=== PATIENT | female | born 1965 | race Caucasian/White ===

== ENCOUNTER 2016-06-12 10:55 | Outpatient (CLI) | payer OTHER ==
[2016-06-12 11:49] VITALS: BP 119/56
[2016-06-12] MEDS ORDERED: IRON SUCROSE COMPLEX 200 MG in NORMAL SALINE 100 ML IV ONE (13:00)
== END 2016-06-12 12:33 | disposition home or self-care (01) ==
LOC: II 10:55 → 5TH 11:00 → II 12:33
PROVIDERS: ATTEND Internal Medicine
PROC: 3E033GC Introduction of Other Therapeutic Substance into Peripheral Vein, Percutaneous Approach (ICD-10-PCS; principal; 2016-06-12)
DX: D50.0 Iron deficiency anemia secondary to blood loss (chronic) (principal); K90.9 Intestinal malabsorption, unspecified
CPT/HCPCS: 96365; J1756

== ENCOUNTER 2016-06-19 10:31 | Outpatient (CLI) | payer OTHER ==
[~2016-06-19 10:31] MED LIST: IRON SUCROSE COMPLEX 200 MG in NORMAL SALINE 100 ML IV PRN
[2016-06-19 11:25] VITALS: BP 141/90
== END 2016-06-19 11:48 | disposition home or self-care (01) ==
LOC: II 10:31 → 5TH 10:33 → II 11:48
PROVIDERS: ATTEND Internal Medicine
PROC: 3E033GC Introduction of Other Therapeutic Substance into Peripheral Vein, Percutaneous Approach (ICD-10-PCS; principal; 2016-06-19)
DX: D50.0 Iron deficiency anemia secondary to blood loss (chronic) (principal); K90.9 Intestinal malabsorption, unspecified
CPT/HCPCS: 96374; J1756; 96367

== ENCOUNTER 2016-06-26 10:18 | Outpatient (CLI) | payer OTHER ==
[2016-06-26 10:50] VITALS: BP 114/71
== END 2016-06-26 11:26 | disposition home or self-care (01) ==
LOC: II 10:18 → 5TH 10:20 → II 11:26
PROVIDERS: ATTEND Internal Medicine
PROC: 3E033GC Introduction of Other Therapeutic Substance into Peripheral Vein, Percutaneous Approach (ICD-10-PCS; principal; 2016-06-26)
DX: D50.0 Iron deficiency anemia secondary to blood loss (chronic) (principal); K90.9 Intestinal malabsorption, unspecified
CPT/HCPCS: 96374; J1756; 96367

== ENCOUNTER → 2016-08-27 | Outpatient (CLI) | payer OTHER ==
--- NOTE | 2016-08-27 11:59 | RADIOLOGY REPORT (SQ) ---
EXAM DESCRIPTION: MRI CERVICAL SPINE WITHOUT COMPLETED DATE/TIME: 08/27/2016 9:05 am REASON FOR STUDY: CERVICAL RADICULOPATHY (M54.12) M54.16 RADICULOPATHY, LUMBAR REGION M54.12 RADIC ULOPATHY, CERVICAL REGION COMPARISON: None. TECHNIQUE: Sagittal and Axial imaging includes T1, T2, STIR and gradient echo sequences. LIMITATIONS: None. FINDINGS: ALIGNMENT: Normal. VERTEBRAE: Intact. BONE MARROW: Normal. No marrow replacement or reactive changes. DISCS: A disc implant is present at C4-5 and C5-6. HARDWARE: Anterior plate and disc implant at C4-C6 CORD AND BASE OF BRAIN: No abnormal signal is seen in the cord. SOFT TISSUES: No soft tissue masses. C1-C2: No significant spinal stenosis. C2-C3: There is a small central disc/ osteophyte complex that narrows the CSF space anteriorly but do es not deform the spinal cord. C3-C4: There is broad-based disc/osteophyte complex and there are uncovertebral osteophytes. There i s thickening of the ligamentum flavum. These findings result in deformity of the cord with narrowing in the AP diameter and a with significant foraminal stenoses as well. C4-C5: No significant spinal stenosis or exit foraminal stenosis. C5-C6: No significant spinal stenosis or exit foraminal stenosis. C6-C7: There are uncovertebral osteophytes causing mild left foraminal stenosis. C7-T1: No significant spinal stenosis or exit foraminal stenosis. UPPER THORACIC: Incompletely imaged. No significant spinal stenosis or exit foraminal stenosis. OTHER: No other significant finding. IMPRESSION: 1. Prior ACDF. 2. There is significant central canal and foraminal stenosis at C3-4 secondary to broad-based disc/o steophyte complex and uncovertebral osteophytes together with thickening of the ligamentum flavum. 3. There is mild left foraminal stenosis secondary to presence of uncovertebral osteophytes at C6-7. TECHNICAL DOCUMENTATION: JOB ID: [id number]- All Rights Reserved
--- NOTE | 2016-08-27 12:35 | RADIOLOGY REPORT (SQ) ---
EXAM DESCRIPTION: MRI LUMBAR SPINE WITHOUT COMPLETED DATE/TIME: 08/27/2016 9:05 am REASON FOR STUDY: LUMBAR RADICULOPATHY (M54.16) M54.16 RADICULOPATHY, LUMBAR REGION M54.12 RADICUL OPATHY, CERVICAL REGION COMPARISON: None. TECHNIQUE: Sagittal and Axial imaging includes T1, T2, STIR and gradient echo sequences. Coronal T2/ HASTE imaging. LIMITATIONS: None. FINDINGS: VISUALIZED UPPER ABDOMEN: Limited evaluation. No acute or suspicious findings suggested. SEGMENTATION: No transitional anatomy. The lowest well-developed disc space is labeled L5-S1. ALIGNMENT: Anatomic. VERTEBRAE: Intact. BONE MARROW: Modic changes are seen in the inferior endplate of L3 and the superior endplate of L4. DISC SIGNAL: Normal. No significant abnormal signal or loss of height. POSTERIOR ELEMENTS: Generally intact. No pars defect evident. HARDWARE: There are posterior rods with screws through the pedicles at L3 and L4 with a disc implant at L3-4. CORD AND CONUS: The conus lies at L1. Included spinal cord is normal. SOFT TISSUES: No aortic aneurysm seen. No bulky retroperitoneal adenopathy or mass. No paraspinal mas s or fluid. L1-L2: No significant spinal stenosis or exit foraminal stenosis. L2-L3: No significant spinal stenosis or exit foraminal stenosis. L3-L4: Surgical changes. No spinal stenosis. No exit foraminal stenosis. L4-L5: There is circumferential disc bulge and there is an annular tear. These findings displace the traversing nerve roots dorsally. There is no foraminal stenosis. There is prominence of the ligame ntum flavum. L5-S1: There is a broad-based disc bulge with a small annular tear. The traversing nerve root on the left is minimally displaced dorsally. There is no foraminal stenosis. LOWER THORACIC: Incompletely imaged. No stenosis seen. SACRUM: Visualized upper sacrum intact. OTHER: No other significant findings. IMPRESSION: 1. Surgical changes at L3-4. 2. There is circumferential disc bulge at L4-5 with an annular tear. There is moderate central ilene l stenosis. 3. There is a broad-based disc bulge with a small annular tear at L5-S1. There is mild central ilene l stenosis. TECHNICAL DOCUMENTATION: JOB ID: [id number]- All Rights Reserved
== END ==
LOC: RAD 07:36
PROVIDERS: ATTEND Internal Medicine
DX: M54.16 Radiculopathy, lumbar region (principal); M54.12 Radiculopathy, cervical region
CPT/HCPCS: 72141; 72148

== ENCOUNTER → 2016-09-07 | Outpatient (CLI) | payer OTHER ==
--- NOTE | 2016-09-07 12:00 | RADIOLOGY REPORT (SQ) ---
EXAM DESCRIPTION: CT CERVICAL SPINE WITHOUT COMPLETED DATE/TIME: 09/07/2016 11:12 am REASON FOR STUDY: NECK AND LUMBAR PAIN M54.16 RADICULOPATHY, LUMBAR REGION M54.12 RADICULOPATHY, C ERVICAL REGION COMPARISON: MRI cervical spine 08/27/2016, 09/23/2015 TECHNIQUE: Axial images acquired through the cervical spine without intravenous contrast. Images re viewed with lung, soft tissue and bone windows. Reconstructed coronal and sagittal MPR images review ed. Images stored on PACS. All CT scanners at this facility use dose modulation, iterative reconstruction, and/or weight based d osing when appropriate to reduce radiation dose to as low as reasonably achievable (ALARA). [facility]: Dose Right [facility]: CareDose [facility]: Dose Right [facility]: Teradose 4D [facility]: [employer] RADIATION DOSE: 15.05 mGy. LIMITATIONS: None. FINDINGS: ALIGNMENT: Straightening of cervical lordosis MINERALIZATION: Normal. VERTEBRAL BODIES: No fractures or dislocation. DISCS: Craniocervical junction, C1-2 and C2-3 are unremarkable. At C3-4, moderate central canal stenosis results from broad diffuse disc bulge and bony spurring and ligamentum flavum thickening. There is moderate bilateral foraminal narrowing from facet and uncover tebral hypertrophy. At C4-5, patient is post discectomy and fusion with an anterior fixation plate and anchoring screws i nto the C4 and C5 vertebral bodies. No significant posterior disc bulge or bony spurring. Minimal b ilateral foraminal narrowing from facet and uncovertebral hypertrophy. At C5-6, patient is post discectomy and fusion with bone graft and anterior fixation plate with ancho ring screws. No significant central stenosis. Minimal posterior bony spurring. Mild bilateral fora suzy narrowing from facet and uncovertebral hypertrophy. At C6-7, patient is post discectomy and fusion with bone graft material, and anterior fixation plate with anchoring screws in the C6 and C7 vertebral bodies. There is minimal posterior bony spurring wi th borderline central canal narrowing. Moderate right, mild left foraminal narrowing. At C7-T1, there is disc space loss of height with mild diffuse posterior disc bulge and bony spurring . No central stenosis. Moderate to high-grade bilateral foraminal narrowing. FACETS, LATERAL MASSES, POSTERIOR ELEMENTS: No fractures. HARDWARE: As above VISUALIZED RIBS: No fractures. LUNG APICES AND SOFT TISSUES: No significant or acute findings. OTHER: No other significant finding. IMPRESSION: Moderate central canal stenosis at C3-4, above the level of multilevel fusion. TECHNICAL DOCUMENTATION: JOB ID: [id number] Quality ID # [id number]: Final reports with documentation of one or more dose reduction techniques (e.g., Au tomated exposure control, adjustment of the mA and/or kV according to patient size, use of iterative reconstruction technique) 2010 [employer]- All Rights Reserved
--- NOTE | 2016-09-07 12:17 | RADIOLOGY REPORT (SQ) ---
EXAM DESCRIPTION: CT LUMBAR SPINE WITHOUT COMPLETED DATE/TIME: 09/07/2016 11:14 am REASON FOR STUDY: NECK AND LUMBAR PAIN M54.16 RADICULOPATHY, LUMBAR REGION M54.12 RADICULOPATHY, C ERVICAL REGION COMPARISON: MRI lumbar spine 08/27/2016 TECHNIQUE: Axial images acquired through the lumbar spine without intravenous contrast. Images revi ewed with lung, soft tissue and bone windows. Reconstructed coronal and sagittal MPR images reviewed . All images stored on PACS. All CT scanners at this facility use dose modulation, iterative reconstruction, and/or weight based d osing when appropriate to reduce radiation dose to as low as reasonably achievable (ALARA). [facility]: Dose Right [facility]: CareDose [facility]: Dose Right [facility]: Teradose 4D [facility]: [employer] RADIATION DOSE: 10.72 mGy. LIMITATIONS: None. FINDINGS: SEGMENTATION: Normal. No transitional anatomy. ALIGNMENT: Mild convex rightward upper lumbar and convex leftward lower lumbar curvature VERTEBRAL BODIES: No fractures. No dislocation. No acute findings. DISCS: The T12-L1 and L1-2 levels are unremarkable. At L2-3, for a mild diffuse posterior disc bulging and mild bilateral facet and ligament hypertrophy is present, with borderline central canal narrowing. Minimal bilateral inferior foraminal narrowing is present without exiting L2 nerve root impingement. At L3-4, patient is post fusion with a disc spacer, and bilateral transpedicular screws and dorsal fi xation plates. Post bilateral laminectomy. Thecal sac is decompressed. There is mild bilateral inf erior foraminal narrowing without exiting L3 nerve root impingement At L4-5, mild to moderate central canal narrowing results from broad diffuse posterior disc bulge and moderate bilateral facet and ligament hypertrophy. There is moderate bilateral inferior foraminal n arrowing without exiting L4 nerve root impingement. At L5-S1, mild diffuse posterior disc bulge and bony spurring and mild facet and ligament hypertrophy is present left slightly greater than right. Borderline central canal narrowing. Moderate bilatera l foraminal narrowing without exiting L5 nerve root impingement PEDICLES, TRANSVERSE PROCESSES: No fractures. No dislocation. No acute findings. FACETS, POSTERIOR ELEMENTS: No fractures. No dislocation. HARDWARE: Fusion hardware at L3-4 as above VISUALIZED RIBS: No fractures. SOFT TISSUES: There are multiple tiny bilateral intrarenal nonobstructive kidney stones present. No ureteral stones in the field of view. Mild vacuum phenomenon bilateral SI joints without bulky bony spurring OTHER: No other significant finding. IMPRESSION: Post fusion with multilevel central and foraminal narrowing, similar compared to 08/28/19 17 TECHNICAL DOCUMENTATION: JOB ID: [id number] Quality ID # [id number]: Final reports with documentation of one or more dose reduction techniques (e.g., Au tomated exposure control, adjustment of the mA and/or kV according to patient size, use of iterative reconstruction technique) 2010 [employer]- All Rights Reserved
== END ==
LOC: RAD 10:07
PROVIDERS: ATTEND Neurological Surgery
DX: M54.16 Radiculopathy, lumbar region (principal); M54.12 Radiculopathy, cervical region; M54.2 Cervicalgia; M54.5 Low back pain
CPT/HCPCS: 72125; 72131

== ENCOUNTER 2016-10-30 13:41 | Emergency (ER) | payer OTHER ==
[2016-10-30 14:16] VITALS: BP 148/79
[2016-10-30] MEDS ORDERED: KETOROLAC TROMETHAMINE 60 MG/2 ML SDV IM ONE (14:23)
--- NOTE | 2016-10-30 16:36 | RADIOLOGY REPORT (SQ) ---
EXAM DESCRIPTION: MRI LUMBAR SPINE WITHOUT COMPLETED DATE/TIME: 10/30/2016 4:17 pm REASON FOR STUDY: back pain, hx spinal injections COMPARISON: MRI lumbar spine 12/30/2012, 08/27/2016 CT lumbar spine 09/07/2016 TECHNIQUE: Sagittal and Axial imaging includes T1, T2, STIR and gradient echo sequences. Coronal T2/ HASTE imaging. LIMITATIONS: None. FINDINGS: VISUALIZED UPPER ABDOMEN: Limited evaluation. No acute or suspicious findings suggested. SEGMENTATION: No transitional anatomy. The lowest well-developed disc space is labeled L5-S1. ALIGNMENT: Anatomic. VERTEBRAE: Intact. BONE MARROW: Normal. No marrow replacement or reactive changes. DISC SIGNAL: Disc space prosthesis at L3-4. Decreased T2 weighted intervertebral disc signal with mi ld disc space loss of height at L1-2, L4-5, and L5-S1. POSTERIOR ELEMENTS: L3 bilateral laminectomy. HARDWARE: Bilateral transpedicular screws and dorsal fixation plates at L3-4 CORD AND CONUS: Normal in size and signal intensity. Conus at the mid L1 level. SOFT TISSUES: No aortic aneurysm seen. No bulky retroperitoneal adenopathy or mass. No paraspinal mas s or fluid. T11-12: No central or foraminal stenosis. Mild bilateral facet hypertrophy. T12-L1: No central or foraminal stenosis. Mild bilateral facet hypertrophy. L1-L2: No significant central or foraminal stenosis. Mild bilateral facet hypertrophy. L2-L3: Borderline central canal stenosis results from minimal posterior disc bulging and bulky bilate ral facet and ligament hypertrophy. No foraminal narrowing. L3-L4: Post bilateral laminectomy, and fusion at the disc space with a disc space prosthesis and bila teral transpedicular screws at L3 at L4. No central stenosis. No significant foraminal narrowing. L4-L5: Broad diffuse posterior disc bulging is present with a small central disc protrusion. This fi nding along with moderate bilateral facet and ligament hypertrophy causes moderate central canal sten osis, with partial effacement of the CSF around the lumbar nerve roots best shown on axial image 30 a nd sagittal image 9. There is high-grade right and moderate to high-grade left foraminal narrowing, and partial effacement of the fat around the exiting right L4 nerve root. These findings are similar compared to the MRI 08/27/2016. L5-S1: Mild diffuse posterior disc bulge, a small central protrusion/herniation and moderate bilatera l facet and ligament hypertrophy cause mild central canal narrowing. There is partial effacement of the ventral epidural fat and mild flattening of the left S1 nerve root as it exits the thecal sac. M oderate bilateral foraminal narrowing is present without exiting L5 nerve root impingement. These fi ndings are similar compared to the MRI 08/27/2016. SACRUM: Visualized upper sacrum intact. OTHER: No other significant findings. IMPRESSION: Post fusion at L3-4, degenerative changes at L4-5 and L5-S1. These are similar compared to prior MRI exam from 08/27/2016. No new findings. No epidural abscess or hemorrhage. TECHNICAL DOCUMENTATION: JOB ID: [id number] [employer]- All Rights Reserved
--- NOTE | 2016-10-30 16:54 | ER Document Report ---
HPI - HPI Patient complains to provider of: back pain Onset: This morning Onset/Duration: Sudden Quality of pain: Sharp Severity: Severe Pain Level: 5 Context: Patient states she had sudden onset of midline low back pain this morning. Denies known injury. Patient is currently under pain management. Has not taken any of the pain medications for breakthrough pain that she has at home. She denies loss of control of bowels or bladder. Associated Symptoms: None Exacerbated by: Movement, Walking Relieved by: Denies Similar symptoms previously: Yes Recently seen / treated by doctor: Yes - ROS ROS below otherwise negative: Yes Systems Reviewed and Negative: Yes All other systems reviewed and negative - CONSTITUTIONAL Constitutional: DENIES: Fever - EENT EENT: DENIES: Congestion - NEURO Neurology: DENIES: Headache - CARDIOVASCULAR Cardiovascular: DENIES: Chest pain - RESPIRATORY Respiratory: DENIES: Trouble Breathing - GASTROINTESTINAL Gastrointestinal: DENIES: Abdominal Pain - URINARY Urinary: DENIES: Dysuria - REPRODUCTIVE LMP: hyst Reproductive: DENIES: : - MUSCULOSKELETAL Musculoskeletal: REPORTS: Back Pain - DERM Skin Color: Normal Skin Problems: None Past Medical History - General Information source: Patient - Social History Smoking Status: Never Smoker Frequency of alcohol use: None Drug Abuse: None Lives with: Family Family History: Reviewed & Not Pertinent Patient has suicidal ideation: No Patient has homicidal ideation: No Pulmonary Medical History: Reports: Hx Bronchitis Comment Only: Hx Asthma - ALLERGIES Neurological Medical History: Reports: Hx Migraine, Hx Seizures - LAST SEIZURE 3 YEARS AGO/NO MEDS GI Medical History: Reports: Hx Crohn's Disease, Hx Ulcer Psychiatric Medical History: Reports: Hx Anxiety, Hx Depression Past Surgical History: Reports: Hx Abdominal Surgery - (L) colectomy, Hx Appendectomy - age 12, Hx Hysterectomy, Hx Orthopedic Surgery - neck fusions ( 2002, 2008) - Immunizations Hx Diphtheria, Pertussis, Tetanus Vaccination: Yes Hx Pneumococcal Vaccination: 03/18/11 Vertical Provider Document - CONSTITUTIONAL Agree With Documented VS: Yes General Appearance: WD/WN - INFECTION CONTROL TRAVEL OUTSIDE OF THE [place] IN LAST 30 DAYS: No - HEENT HEENT: Atraumatic, Normocephalic - RESPIRATORY Respiratory: Breath Sounds Normal, No Respiratory Distress O2 Sat by Pulse Oximetry: 100 - CARDIOVASCULAR Cardiovascular: Regular Rate, Regular Rhythm - GI/ABDOMEN Gastrointestinal: Abdomen Soft, Abdomen Non-Tender - BACK Notes: Lumbar spine and right-sided paraspinal lumbar muscles tender to touch. Pain reproduced with bilateral leg raises, right more than left. - NEURO Level of Consciousness: Awake, Alert, Appropriate - DERM Integumentary: Warm, Dry Course - Re-evaluation Re-evalutation: 10/30/16 17:02 MRI results the same as August 27, 2016 exam and was discussed with patient. - Vital Signs Vital signs: Temp Pulse Resp BP Pulse Ox 97.7 F 88 148/79 H 100 10/30/16 13:50 10/30/16 13:50 10/30/16 13:50 10/30/16 13:50 Discharge - Discharge Clinical Impression: Back pain Qualifiers: Back pain location: low back pain Back pain laterality: midline Sciatica presence: unspecified whether sciatica present Condition: Good Disposition: HOME, SELF-CARE Instructions: Ice Packs ([facility]), Warm Packs ([facility]), Low Back Pain ([facility]) Additional Instructions: MRI results showed no change August 27, 2016 Take your pain medications that you already have at home from your pain management doctor Ice or heat packs to back Follow-up with your doctor or pain management doctor tomorrow morning for recheck. Referrals: ERIN SEGURA MD [Primary Care Provider] - Follow up as needed
== END 2016-10-30 17:36 | disposition home or self-care (01) ==
LOC: ER 13:41
DX: M54.5 Low back pain (principal); G89.29 Other chronic pain; Z90.710 Acquired absence of both cervix and uterus; Z98.1 Arthrodesis status
CPT/HCPCS: 99283; 96374; 72148; J1885

== ENCOUNTER 2017-01-09 14:17 | Outpatient (CLI) | payer OTHER ==
[~2017-01-09 14:17] MED LIST changes: +FERRIC CARBOXYMALTOSE 750 MG in NORMAL SALINE 250 ML IV PRN; -IRON SUCROSE COMPLEX 200 MG in NORMAL SALINE 100 ML IV PRN
[2017-01-09 15:01] VITALS: BP 113/61
== END 2017-01-09 15:18 | disposition home or self-care (01) ==
LOC: II 14:17 → 5TH 15:16 → II 15:18
PROVIDERS: ATTEND Internal Medicine
PROC: 3E033GC Introduction of Other Therapeutic Substance into Peripheral Vein, Percutaneous Approach (ICD-10-PCS; principal; 2017-01-09)
DX: E61.1 Iron deficiency (principal); K50.819 Crohn's disease of both small and large intestine with unspecified complications
CPT/HCPCS: 96365; J7050; J1439